=== PATIENT | male | born 1985 | race African-American/Black ===

== ENCOUNTER 2021-05-01 11:06 | Emergency (ER) | payer OTHER ==
[~2021-05-01] VITALS: Ht 170.2 cm; Wt 82.0 kg
[2021-05-01] MEDS ORDERED: THIAMINE HCL 100MG TABLET PO ONE (12:00)
[2021-05-01] MEDS ORDERED: LORAZEPAM 2MG/ML CPJ IV ONE (12:00)
[2021-05-01] MEDS ORDERED: SODIUM CHLORIDE 0.9% 1,000 ML IV ONE (12:00)
[2021-05-01 12:42] LABS: BASOPHILS % 1.5 % (0.0-2.0); EOSINOPHILS % 3.5 % (0.0-5.0); HEMATOCRIT. 44.8 % (42.0-52.0); HEMOGLOBIN. 15.8 g/dL (14.0-18.0); MEAN CORPUSCULAR HEMOGLOBIN 34.1 pg (28.0-32.0); MEAN CORPUSCULAR VOLUME 97.1 fL (80.0-94.0); MEAN PLATELET VOLUME 9.2 fl (7.4-10.4); MONOCYTES % 9.3 % (2.0-8.0); NEUTROPHILS % 69.7 % (40.0-76.0); PLATELET 301 x1000/uL (130-400); RED BLOOD CELL COUNT 4.62 mill/uL (4.7-6.1); RED CELL DISTRIBUTION WIDTH 14.2 % (11.6-14.6)
[2021-05-01 12:46] LABS: CHLORIDE 105 mEq/L (98-107)
[2021-05-01 12:53] LABS: ETHANOL BLOOD 186 mg/dL
[2021-05-01 13:46] LABS: *AMPHETAMINES SCREEN URINE NEGATIVE (NEGATIVE); *BARBITURATES SCREEN URINE NEGATIVE (NEGATIVE); *BENZODIAZEPINES SCREEN URINE NEGATIVE (NEGATIVE); *COCAINE SCREEN URINE NEGATIVE (NEGATIVE); OPIATES URINE SCREEN NEGATIVE (NEGATIVE)
[2021-05-01 13:48] LABS: CANNABINOID URINE SCREEN PRESUMTIVE POSITIVE (NEGATIVE); METHADONE URINE SCREEN NEGATIVE (NEGATIVE); PHENCYCLIDINE URINE SCREEN NEGATIVE (NEGATIVE)
[2021-05-01] MEDS ORDERED: KETOROLAC 15MG/ML VIAL IV SCH (14:00)
[2021-05-01] MEDS ORDERED: GABA-529 MT (17:56)
[2021-05-01] MEDS ORDERED: CHLORDIAZEPOXIDE 25MG CAPSULE PO ONE (18:45)
[2021-05-01] MEDS ORDERED: IOHEXOL-350 100 ML BOTTLE ONE (18:49)
[2021-05-01] MEDS ORDERED: CHLORDIAZEPOXIDE 10MG CAPSULE PO NR (18:51)
[2021-05-01] MEDS ORDERED: AMLODIPINE 5MG TABLET PO ONE (19:30)
[2021-05-01 22:18] VITALS: BP 182/128
== END 2021-05-01 22:21 | disposition home or self-care (01) ==
LOC: ER 11:06
DX: R07.89 Other chest pain (principal); F10.20 Alcohol dependence, uncomplicated; I10 Essential (primary) hypertension; F43.10 Post-traumatic stress disorder, unspecified; F41.9 Anxiety disorder, unspecified; Y90.6 Blood alcohol level of 120-199 mg/100 ml; Z87.891 Personal history of nicotine dependence
CPT/HCPCS: 36415; 71045; 71275; 76770; 80053; 80305; 80320; 83880; 84484; 85025; 85379; 93005; 96361; 96374; 96375; 99285; J1885; J2060; J7030; Q9967; G0480